=== PATIENT | female | born 1955 | race Caucasian/White ===

== ENCOUNTER 2019-02-09 05:23 | Day surgery (SDC) | payer MEDICAID ==
[2019-02-09] VITALS (14 sets, daily range): BP systolic 100–156; BP diastolic 62–100; Ht 154.9 cm; Wt 65.9 kg
[~2019-02-09] VITALS: Ht 154.9 cm; Wt 65.9 kg
[~2019-02-09 05:23] MED LIST: ALBUTEROL0.63 MG/3 INH; BENTYL 20 MG TA20 MG PO; CELEXA40 MG PO; HYDROCODON-ACE1 EA10 PO; KLONOPIN1 MG PO; LISINOPRIL10 MG PO; MOBIC7.5 MG PO; NEXIUM40 MG PO; PROTONIX40 MG PO; SIMBICORT
[2019-02-09 05:51] LABS: HEMATOCRIT 43.5 % (36.0-48.0); HEMOGLOBIN 14.9 g/dL (12-16); MCH 30.3 pg (26.0-34.0); MCHC 34.3 g/dL (31.0-37.0); MCV 88.6 fL (80.0-100.0); RBC 4.91 10x6/uL (4.00-5.40); RDW 14.5 % (11.5-14.5); WBC 9.2 10x3/uL (4.8-10.8)
[2019-02-09] MEDS ORDERED: SYMBICORT 16010.2 GM INH (06:10)
--- NOTE | 2019-02-09 11:30 | NUR ---
REC'D VIA BED FROM RECOVERY ROOM STAFF, SLEEPING AROUSABLE TO VERBAL STIMULI, FALLS ASLEEP DURING CONVERSATION, TEMP 94.7, BEAR HUGGER APPLIED, OTHER VSS, RIGHT NECK INCISION WITH DURABOND DRESSING CDI, DENIES PAIN, CALL LIGHT IN REACH, NO NEEDS AT THIS TIME, FAMILY CALLED TO BEDSIDE
--- NOTE | 2019-02-09 15:00 | NUR ---
CONTINUES TO SLEEP, AROUSABLE TO VERBAL STIMULI, DENIES PAIN, ASSESSMENT COMPLETE PER FLOWSHEET
--- NOTE | 2019-02-09 19:30 | NUR ---
REPORT RECEIVED. ASSUMED CARE OF PATIENT. PATIENT ALERT AND ORIENTED X 4. STATES PAIN IS TOLERABLE AT THIS TIME. PT HAS PT MISSING TEETH AND IS MOUTH BREATHER AT TIMES. WEARING O2 AT 2L VIA NASAL CANNULA. HAS INCISION TO THE LOWER PORTION OF THE NECK THAT IS WELL APPROXIMATED AND CLOSED. NO DRAINAGE OR REDNESS NOTED. PATIENT HAS LEFT HAND IV THAT IS PATENT AND DRESSING ADHERED TO SKIN. CURRENTLY INFUSING D5 1/2 NS @ 50. DENIES FURTHER DISCOMFORT AT THIS TIME. USES CALL LIGHT WHEN IN NEED OF ASSISTANCE. CONTINUE PLAN OF CARE.
--- NOTE | 2019-02-09 19:30 | NUR ---
CALLED TO ROOM, INCONTINENT OF URINE, SKINCARE AND LINEN CHANGE COMPLETED, C/O PAIN 04/25 IN NECK, MORPHINE 2 MG IVP GIVEN
--- NOTE | 2019-02-09 21:00 | NUR ---
ASSISTED PATIENT WITH BED LUCAS. USES APPROPRIATELY AND VOIDED CLEAR YELLOW URINE. VSS. DENIES PAIN OR DISCOMFORT AT THIS TIME. IV REMAINS PATENT IN THE LEFT HAND. CALL LIGHT IN REACH OF PATIENT. CONTINUE PLAN OF CARE.
--- NOTE | 2019-02-09 23:00 | NUR ---
PT RESTING WITH EYES CLOSED AND UNLABORED RESPIRATIONS. HOB ELEVATED TO 40 DEGREE ANGLE. NO DISTRESS NOTED. VSS. LEFT HAND IV REMAINTS PATENT WITH NO REDNESS AT INSERTION SITE. CALL LIGHT IN REACH OF PATIENT. CONTINUE PLAN OF CARE.
[2019-02-10] VITALS (11 sets, daily range): BP systolic 111–154; BP diastolic 63–86
--- NOTE | 2019-02-10 01:00 | NUR ---
ANSWERED PATIENT CALL LIGHT. ASSISTED WITH BED LUCAS. PT VOIDED CLEAR YELLOW URINE. RATES PAIN 1 ON SCALE OF 1-10 AT THIS TIME. DENIES FURTHER NEEDS. VITAL SIGNS STABLE. CALL LIGHT IN REACH OF PATIENT. CONTINUE PLAN OF CARE.
--- NOTE | 2019-02-10 02:30 | NUR ---
ANSWERED PATIENT CALL LIGHT. ASSISTED WITH BED LUCAS. PATIENT STATES PAIN IS 6/10 AND REQUESTS PAIN MEDICINE. ADMINSITERED PER ORDER. PT TOLERATED WELL. DENIES FURTHER NEEDS AT THIS TIME. CALL LIGHT IN HAND. VITAL SIGNS STABLE. CONTINUE PLAN OF CARE.
--- NOTE | 2019-02-10 03:05 | NUR ---
I have reviewed this patient and I concur with the Shift Assessment completed by the Licensed Practical Nurse today this shift.
--- NOTE | 2019-02-10 05:58 | NUR ---
ASSISTED WITH BED BATH. ASSISTED WITH BED LUCAS. LINEN CHANGE PROVIDED. DENIES FURTHER NEEDS AT THIS TIME. PATIENT VITAL SIGNS STABLE. CALL LIGHT WITHIN REACH OF PT. CPOC.
--- NOTE | 2019-02-10 07:00 | NUR ---
REC'D REPORT AND RESUMED CARE, AAO, VSS, C/O PAIN IN NECK, 11/23, REC'D PAIN MED 1 HOUR AGO, NECK INCISION CDI, ASSESSMENT COMPLETED PER FLOWSHEET, CALL LIGHT IN REACH, NO NEEDS AT THIS TIME
--- NOTE | 2019-02-10 08:00 | NUR ---
BREAKFAST TRAY TO BEDSIDE, INDEPENDENT WITH SET UP AND EATING
--- NOTE | 2019-02-10 09:30 | NUR ---
MORNING MEDS INTITATED
--- NOTE | 2019-02-10 11:00 | NUR ---
NO ACUTE CHANGE FROM PREVIOUS ASSESSMENT, UP TO CHAIR WITH SOFT COLLAR, TOLERATED WITHOUT DIFFICULTY
[2019-02-10] MEDS ORDERED: HYDROCODON-ACE1 EA10 PO (11:30)
--- NOTE | 2019-02-10 11:50 | NUR ---
DR HELTON HERE FOR EVAL, DISCHARGE INSTRUCTIONS GIVEN TO PATIENT
--- NOTE | 2019-02-10 13:30 | NUR ---
DC HOME VIA WHEELCHAIR TO PERSONAL VEHICLE WITH FAMILY, SHAYY MCKENIZE PAPERWORK GIVEN, N NEEDS AT THIS TIME
--- NOTE | 2019-02-16 13:37 | OP ---
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 POSTOPERATIVE DIAGNOSES: Osteophyte formation and disc herniation at C5-C6 and C6-C7 with cervical radiculopathy. PROCEDURES: Anterior cervical discectomy and fusion at C5-C6 and C6-C7 with removal of osteophytes under microscopic illumination, separate anterior cervical plate and screws, PEEK interbody cages with bone stem cells at C5-C6 and C6-C7. SURGEON: Perry Roman MD DESCRIPTION OF TECHNIQUE: After induction of general endotracheal anesthesia, the patient was positioned supine on the operating table with an interscapular roll. The neck was prepped and draped in usual sterile fashion. Fluoroscopic x-ray and freer localized the C5-C6 interspace. After infiltration of 1:100,000 epinephrine and 1% lidocaine, a transverse skin incision was carried out from the midline to the sternocleidomastoid muscle. The platysma was divided with Bovie cautery. Using blunt and sharp dissection with Metzenbaum scissors, I proceeded in the avascular plane medial to the carotid sheath. The C5-C6 interspace was identified with fluoroscopic x-ray and spinal needle. The longus colli muscles were elevated from bodies of C5, C6, and C7. Osteophytes were removed anteriorly with Adson rongeurs. A self-retaining retractor was placed deep to the longus colli muscles. [place] distracting pins were placed by the C5, C6, and C7. Disc spaces of C5-C6 and C6-C7 were incised with a #11 blade. Series of curettes and pituitary rongeurs were used to remove disc material from C5-C6 and C6-C7 interspaces. Endplates were prepared with curettes. Under microscopic illumination, osteophytes were drilled away posteriorly with the Midas-Srinivas drill. The posterior longitudinal ligament was removed at each interspace and the dura at C5-C6 and C6-C7 was decompressed as well as nerve root within the foramen at each level on each side. A PEEK interbody cage was placed in the disc space under distraction. Prior to this, it was filled with Liza bone stem cells. A separate anterior cervical plate and screws were used to span the C5-C6 and the C6-C7 interspaces. Locking cams were tightened down over the screw heads. Good position of the hardware was confirmed with fluoroscopic x-ray. Meticulous hemostasis was maintained throughout the wound. The wound was irrigated with copious amounts of Ancef irrigant solution. The platysma was closed with 3-0 Vicryl suture. The subdermal layer was closed with 3-0 Vicryl suture. The skin was reapproximated with Steri-Strips and benzoin. A sterile dressing was applied to the wound. The patient was awakened in good condition and taken to recovery. All counts were reported as correct. Estimated blood loss was minimal. TRANSINT:[id number] Voice Confirmation ID: [id number] DOCUMENT ID: [id number] OPERATIVE REPORT [id number] JL ROMANO JOHN MD at 1337 CC: [id number] DICTATION DATE: 02/15/19 1437 EXTRACTOR PULLER: 02/15/19 1549 [facility] 02/10/19 [facility] [address] [place] [address]
== END 2019-02-10 13:30 | disposition home or self-care (01) ==
LOC: D.ICU 05:23 → D.OPS 05:23 → D.PAN 07:30 → D.ICU 11:07 → D.OPS 02-10 13:30
PROVIDERS: Anesthesiology; ATTEND Neurological Surgery
DX: M25.78 Osteophyte, vertebrae (principal); M50.122 Cervical disc disorder at C5-C6 level with radiculopathy; Z01.812 Encounter for preprocedural laboratory examination